=== PATIENT | female | born 1975 | race African-American/Black ===

== ENCOUNTER 2016-12-13 22:05 | Emergency (ER) | payer OTHER ==
[~2016-12-13 22:05] MED LIST: ALBUTEROL MININEB INH; ALBUTEROL17 G1 IH; ALBUTEROL17 GM INH; AMOXICILLIN PO; AMOXICILLIN875 MG PO; ARIXTRA5 MG/0.4 M SQ; ATARAX PO; AUGMENTIN 875/125MG PO; AZO STANDARD97.5 MG; BACTRIM 400-801 TA1; CIPRO PO; CLARITIN10 M2 PO; ELOCON 0.1% OIN15 GM EXT; FOLIC ACID1 MG PO; GABAPENTIN300 MG PO; GLUCOPHAGE XR500 MG PO; GLUCOPHAGE500 MG PO; HCTZ PO; HUMALOG100 U/M2 SQ; HUMALOG100 U/ML SUBQ; HUMULIN INSULIN; HUMULIN N100 U/ML SUBQ; HUMULIN R100 U/ML SUBQ; HYDROCHLOROTHIA25 MG PO; KEFLEX500 M1 PO; LEVAQUIN PO; LISINOPRIL PO; LISINOPRIL20 MG PO; LORTAB 5-325 M1 EACH PO; LORTAB 5/500 TA1 TA1 PO; LORTAB 7.5-5001 TAB PO; MACRODANTIN PO; MEDROL4 MG/DOSE- PO; METFORMIN HCL500 M1 PO; NAPROXEN PO; PERCOCET5/325 PO; PHENERGAN PO; PHENERGAN25 M1 DOB; PHENERGAN25 M1 PO; PRAVACHOL; PRAVACHOL PO; PRAVASTATIN SOD10 MG PO; PRENATAL1 TA1; PYRIDIUM PO; SINUS RELIEF15 ML; TESSALON200 MG PO; VIBRAMYCIN100 M1 PO; VICODIN PO; VITAMIN B-121000 MC1; VOLTAREN75 MG PO; ZESTORETIC PO; ZITHROMAX PO; ZOFRAN ODT4 MG PO; ZYRTEC PO; ZYRTEC10 M2 PO
[2016-12-13] MEDS ORDERED: TOPAMAX50 MG (22:15)
[2016-12-13] MEDS ORDERED: LANTUS SOL100 UNIT/1 (22:16)
== END 2016-12-13 23:43 | disposition home or self-care (01) ==
LOC: SED 22:05
DX: L08.89 Other specified local infections of the skin and subcutaneous tissue (principal); I10 Essential (primary) hypertension; E78.5 Hyperlipidemia, unspecified; E10.9 Type 1 diabetes mellitus without complications; F17.210 Nicotine dependence, cigarettes, uncomplicated; Z23 Encounter for immunization; Z79.84 Long term (current) use of oral hypoglycemic drugs; Z79.899 Other long term (current) drug therapy; Z79.4 Long term (current) use of insulin
CPT/HCPCS: 90471; 90715; 99283